=== PATIENT | female | born 1960 | race Caucasian/White ===

== ENCOUNTER 2018-11-24 18:42 | Emergency (ER) | payer SELFPAY ==
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
[2018-11-24] MEDS ORDERED: ONDANSETRON 4 MG TAB.RAPDIS PO ONE (19:05)
[2018-11-24 19:50] LABS: ABSOLUTE BASOPHILS # (AUTO) 0.1 10^3/uL (0.0-0.2); ABSOLUTE EOSINOPHILS # (AUTO) 0.1 10^3/uL (0.0-0.6); ABSOLUTE LYMPHOCYTES (AUTO) 1.2 10^3/uL (0.5-4.7); ABSOLUTE MONOCYTES (AUTO) 0.4 10^3/uL (0.1-1.4); ABSOLUTE NEUT (AUTO) 9.1 10^3/uL (1.7-8.2); BASOPHILS % (AUTO) 0.5 % (0-2); EOSINOPHILS % (AUTO) 0.7 % (0-6); HEMATOCRIT 35.4 % (36.0-47.0); HEMOGLOBIN 11.8 g/dL (12.0-15.5); LYMPHOCYTES % (AUTO) 10.7 % (13-45); MEAN CORPUSCULAR HEMOGLOBIN 28.6 pg (27.0-33.4); MEAN CORPUSCULAR HGB CONC 33.4 g/dL (32.0-36.0); MEAN CORPUSCULAR VOLUME 85 fl (80-97); MONOCYTES % (AUTO) 3.6 % (3-13); PLATELET COUNT 163 10^3/uL (150-450); RED BLOOD COUNT 4.15 10^6/uL (3.72-5.28); RED CELL DISTRIBUTION WIDTH 15.2 % (11.5-14.0); SEGMENTED NEUTROPHILS % (AUTO) 84.5 % (42-78); TOTAL CELLS COUNTED % (AUTO) 100 %; WHITE BLOOD COUNT 10.8 10^3/uL (4.0-10.5)
[2018-11-24 20:06] LABS: INTERNATIONAL RATION (INR) 0.93; PROTHROMBIN TIME 12.4 SEC (11.4-15.4)
[2018-11-24 20:07] LABS: PARTIAL THROMBOPLASTIN TIME 25.2 SEC (23.5-35.8)
[2018-11-24] MEDS ORDERED: NORMAL SALINE 1000 ML 1,000 ML IV ONE (20:15)
[2018-11-24 20:18] LABS: ALBUMIN 4.2 g/dL (3.5-5.0); ALKALINE PHOSPHATASE 95 U/L (38-126); ANION GAP 8 (5-19); ASPARTATE AMINO TRANSFERASE 22 U/L (14-36); BILIRUBIN,DIRECT 0.1 mg/dL (0.0-0.4); BILIRUBIN,TOTAL 0.3 mg/dL (0.2-1.3); BLOOD UREA NITROGEN 22 mg/dL (7-20); CALCIUM 9.5 mg/dL (8.4-10.2); CARBON DIOXIDE 26 mmol/L (22-30); CHLORIDE 103 mmol/L (98-107); CREATINE KINASE 102 U/L (30-135); GLUCOSE 95 mg/dL (75-110); POTASSIUM 3.8 mmol/L (3.6-5.0); TOTAL PROTEIN 7.2 g/dL (6.3-8.2)
[2018-11-24 20:47] LABS: CREATINE KINASE MB 0.88 ng/mL (<4.55)
[2018-11-24 20:50] LABS: TROPONIN I < 0.012 ng/mL
--- NOTE | 2018-11-24 20:55 | RADIOLOGY REPORT (SQ) ---
EXAM DESCRIPTION: XR CHEST 2 VIEWS COMPLETED DATE/TME: 11/24/2018 19:04 CLINICAL HISTORY: 58 years Female palpitations COMPARISON: None. FINDINGS: The cardiomediastinal silhouette appears unremarkable. No consolidating infiltrates or pleural effusions. No pneumothorax. IMPRESSION: No acute abnormality is identified.
--- NOTE | 2018-11-24 21:14 | ER Document Report ---
ED General - General Chief Complaint: Palpitations Stated Complaint: SHAKING, FAST HEART BEAT,NAUSEA Time Seen by Provider: 11/24/18 18:55 Primary Care Provider: SANJU ROSEN MD [ACTIVE STAFF] - Follow up as needed Mode of Arrival: Ambulatory TRAVEL OUTSIDE OF THE [place] IN LAST 30 DAYS: No - HPI Notes: This is a 58-year-old female who presents today with a complaint of palpitations. Patient states that her heart has been racing off and on. Today today. She denies any chest pain. She denies any added stress. She drinks caffeine but states that that is normal for her. She denies any recent illness. She denies any nausea or vomiting. She describes her symptoms as moderate. There are no obvious aggravating or relieving factors. - Related Data Allergies/Adverse Reactions: Sulfa (Sulfonamide Antibiotics) Allergy (Verified 11/24/18 18:55) Edema codeine [Codeine] Adverse Reaction (Intermediate, Verified 11/24/18 18:55) Home Medications: methadone, percocet, lisinopril/hctz Past Medical History - General Information source: Patient - Social History Smoking Status: Current Every Day Smoker Chew tobacco use (# tins/day): No Frequency of alcohol use: None Drug Abuse: None Family History: Reviewed & Not Pertinent Patient has suicidal ideation: No Patient has homicidal ideation: No - Past Medical History Cardiac Medical History: Reports: Hx Hypertension Pulmonary Medical History: Reports: None EENT Medical History: Reports: None Neurological Medical History: Reports: None Endocrine Medical History: Reports: None Renal/ Medical History: Reports: Hx Kidney Stones, Hx Ovarian Cysts Malignancy Medical History: Reports: None GI Medical History: Reports: Hx Gastritis, Hx Ulcer, Hx Endoscopy Musculoskeletal Medical History: Reports Hx Arthritis, Reports Hx Muscle Spasm, Reports Hx Musculoskeletal Deformity - scoliosis Psychiatric Medical History: Reports: Hx Anxiety, Hx Depression, Other - panic Traumatic Medical History: Reports: None Infectious Medical History: Reports: None Past Surgical History: Reports: Hx Adenoidectomy, Hx Cholecystectomy, Hx Gynec ologic Surgery - ovarian cyst removal, Hx Tonsillectomy - adenoids - Immunizations Hx Diphtheria, Pertussis, Tetanus Vaccination: No Review of Systems - Review of Systems Cardiovascular: Palpitations. denies: Chest pain Respiratory: denies: Cough Gastrointestinal: denies: Abdominal pain, Diarrhea, Nausea Neurological/Psychological: denies: Headaches -: Yes All other systems reviewed and negative Physical Exam - Vital signs Vitals: Temp Pulse Resp BP Pulse Ox 98.3 F 84 20 168/92 H 100 11/24/18 18:48 11/24/18 18:48 11/24/18 18:48 11/24/18 18:48 11/24/18 18:48 - General General appearance: Appears well, Alert - Respiratory Respiratory status: No respiratory distress Chest status: Nontender Breath sounds: Normal Chest palpation: Normal - Cardiovascular Rhythm: Regular Heart sounds: Normal auscultation Murmur: No - Abdominal Inspection: Normal Distension: No distension Bowel sounds: Normal Tenderness: Nontender Organomegaly: No organomegaly - Neurological Neuro grossly intact: Yes Cognition: Normal Orientation: AAOx4 Henderson Coma Scale Eye Opening: Spontaneous Henderson Coma Scale Verbal: Oriented Tay Coma Scale Motor: Obeys Commands Henderson Coma Scale Total: 15 Speech: Normal Motor strength normal: LUE, RUE, LLE, RLE Sensory: Normal - Psychological Associated symptoms: Normal affect, Normal mood - Skin Skin Temperature: Warm Skin Moisture: Dry Skin Color: Normal Course - Re-evaluation Re-evalutation: 11/24/18 21:13 Differential diagnosis includes arrhythmia versus electrolyte abnormalities versus dehydration. Will check basic labs. EKG shows normal sinus rhythm at 73 bpm. Normal axis. Normal intervals. No acute injury pattern. 11/24/18 22:33 Patient reevaluated. She is doing well. She feels fine. Labs and imaging unremarkable. I will refer her to cardiology for consideration of a Holter monitor. I discussed discharge with patient. Discussed follow-up with her. - Vital Signs Vital signs: Temp Pulse Resp BP Pulse Ox 98.3 F 84 13 152/70 H 99 11/24/18 18:48 11/24/18 18:48 11/24/18 21:14 11/24/18 21:14 11/24/18 21:14 - Laboratory Result Diagrams: 11/24/18 19:38 11/24/18 19:38 Laboratory results interpreted by me: 11/24/18 11/24/18 19:38 19:38 WBC 10.8 H Hgb 11.8 L Hct 35.4 L RDW 15.2 H Lymph % (Auto) 10.7 L Absolute Neuts (auto) 9.1 H Seg Neutrophils % 84.5 H Sodium 136.9 L BUN 22 H Est GFR (MDRD) Non-Af 59 L Discharge - Discharge Clinical Impression: Palpitations Condition: Stable Disposition: HOME, SELF-CARE Instructions: Palpitations (Irregular or Rapid Heartrate) ([facility]) Referrals: SANJU ROSEN MD [ACTIVE STAFF] - Follow up as needed JASON CHING MD [ACTIVE STAFF] - Follow up tomorrow (Call tomorrow for appointment)
[2018-11-24 22:01] VITALS: BP 152/70
--- NOTE | 2018-11-24 22:40 | EKG REPORT ---
SEVERITY:- NORMAL ECG - SINUS RHYTHM : Confirmed by: Becki Alvarado MD 24-Nov-2018 22:38:58
== END 2018-11-24 22:54 | disposition home or self-care (01) ==
LOC: ER 18:42
DX: R00.2 Palpitations (principal); F17.200 Nicotine dependence, unspecified, uncomplicated; I10 Essential (primary) hypertension; Z88.2 Allergy status to sulfonamides; Z88.6 Allergy status to analgesic agent; Z87.442 Personal history of urinary calculi; Z90.49 Acquired absence of other specified parts of digestive tract
CPT/HCPCS: 93005; 36415; 84439; 82553; 82550; 83735; 84443; 85025; 85610; 85730; 80053; 84484; 71046; 93010; S0119; J7030; 96360; 99285